=== PATIENT | male | born 1960 | race Caucasian/White ===

== ENCOUNTER 2023-04-23 09:41 | Outpatient (AMB) | payer BC, SELFPAY ==
--- NOTE | 2023-04-23 10:12 | HO.NEPHOV_ITS ---
HPI HPI Comments History of Present Illness Details I had the pleasure of seeing Harrison in consultation for hyperkalemia. His serum creatinine also had been running high normal for a while. He has history of prostate cancer and had undergone radical prostatectomy. He has been having upper respiratory issues including sinus problems for which he sees ears nose throat doctor locally as well as in [place]. Lately he has been having joint pains. He is known to be hypertensive and has been on lisinopril. He is not a diabetic. He denies any blood or protein in the urine. He does not have any pedal edema. He checks his blood pressure and has been at goal. He recently had taken meloxicam which has been discontinued. His serum potassium at baseline has been around 5. He has no history of metabolic acidosis. He denies taking any eoas-wmv-kbtiqyq medications. He had been receiving intermittent short courses of prednisone over the years from ENT physicians. He recently had been switched to lisinopril hydrochlorothiazide. He finds it difficult to drink plenty of fluids given he developed some incontinence issues after his radical prostatectomy. His recent serum creatinine has been 1.2 with a serum potassium 5.5. He denies nausea, vomiting or diarrhea. He does not have any shortness of breath, proximal nocturnal dyspnea, orthopnea. He had denied any photosensitivity, skin rashes. His sister has had history of hydronephrosis. He has not had a renal ultrasound yet. [facility] Medical History (Updated 04/23/23 @ 11:13 by Celso Diaz MD) Hyperlipidemia Low testosterone Asthma Essential hypertension Hyperkalemia Surgical History (Updated 04/23/23 @ 10:15 by Krista Acuña MA) History of prostatectomy H/O sinus surgery Family History (Updated 04/23/23 @ 10:16 by Krista Acñua MA) Mother Hypertension Father Hypertension Brother Hypertension Sister Kidney disease Social History (Updated 04/23/23 @ 10:17 by Krista Acuña MA) Alcohol intake: never Patient Tobacco Use Status: Never used Tobacco Vital Signs 04/23/23 10:13 Height 5 ft 9 in Weight 212 lb 8 oz BMI 31.4 BP 124/80 Blood Pressure Location Lt brachial Position Sitting Pulse 72 Pulse Source Pulse Oximeter Physical Exam Vital Signs: Last Vital Signs Pulse 72 04/23/23 10:13 BP 124/80 11/13/23 10:13 BMI result Body Mass Index 31.4 Const General: comfortable and no acute distress Orientation/consciousness: patient oriented x3 HEENT Head: Yes normocephalic Mouth: Normal oral and palatal mucosa present Eyes EOM: EOMs intact bilaterally Neck Neck: Yes supple Resp Auscultation: clear to auscultation bilaterally Cardio Jugular venous distension: no JVD Rate: regular rate Heart sounds: Murmur heart sound present GI Palpation (GI): Soft to palpation Auscultation: normal bowel sounds General: Yes no CVA tenderness Back/Spine/Pelvis Back: no CVA tenderness Skin General skin exam: no rashes or lesions noted Neuro General: patient oriented x3 and moves all extremities Extrem General: Yes no pedal edema Assessment & Plan Assessment & Plan (1) Essential hypertension: Code(s): I10 - Essential (primary) hypertension (2) Hyperkalemia: Code(s): E87.5 - Hyperkalemia Plan 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 He has not had a renal ultrasound yet. He had been on lisinopril for blood pressure. He was on meloxicam when his serum potassium went up to 5.5. At that time he was switched from lisinopril to lisinopril hydrochlorothiazide and his blood urea nitrogen went up marginally. His serum creatinine has been stable. He is not diabetic. He denies taking any nonsteroidal anti-inflammatory medications or dwza-nel-tfhvykm medications at this point in time. He has a lot of upper respiratory illness as well as significant sinus issues and nasal polyps. He receives intermittent short course of prednisone from his ENT physicians. He has been having joint pains lately with initially improved with the urge small dose of steroids but needed a higher dose of of prednisone recently. He needs to see a catalogue maker. I have asked him to remain well hydrated. Given he is not taking any nonsteroidal anti-inflammatory medications and trying to improve in his hydration, hopefully his serum creatinine will remain stable and the serum potassium will normalize. If his potassium is still running high normal or high I will initiate him on low-potassium diet and potassium lowering therapy. I will arrange a renal ultrasound after the next visit and blood work. He is also getting an ANCA given his recurrent sinus issues as well as high normal serum creatinine. He has lost quite a bit of weight being on medications. All these have been explained in detail. All questions were answered. Time spent procuring old data, patient encounter and documentation 61 minutes. Orders: Orders UA and rflx microscopic Today E87.5 - Hyperkalemia, I10 - Essential (primary) hypertension ANCA Vasculitides Today E87.5 - Hyperkalemia, I10 - Essential (primary) hypertension Blood Urea Nitrogen Today E87.5 - Hyperkalemia, I10 - Essential (primary) hypertension Creatinine Today E87.5 - Hyperkalemia, I10 - Essential (primary) hypertension Protein Creatinine Ratio, Ur Today E87.5 - Hyperkalemia, I10 - Essential (primary) hypertension Electrolytes Today E87.5 - Hyperkalemia, I10 - Essential (primary) hypertension Calcium Today E87.5 - Hyperkalemia, I10 - Essential (primary) hypertension Coding Level of Care Code New Pt Level 4 (74741) Diagnoses Essential hypertension I10 Hyperkalemia E87.5
[2023-04-23 10:13] VITALS: BP 124/80; PULSE 72; BMI 31.4
== END 2023-04-23 11:29 | disposition home or self-care (01) ==
PROVIDERS: PCP Internal Medicine; Visit Provider Internal Medicine Nephrology
DX: I10 Essential (primary) hypertension (principal); E87.5 Hyperkalemia
CPT/HCPCS: 99205

== ENCOUNTER → 2023-04-23 09:41 | Outpatient (BNVA) | payer BC, SELFPAY | PROVIDERS: PCP Internal Medicine; Visit Provider Internal Medicine Nephrology ==

== ENCOUNTER 2023-06-26 11:32 | Outpatient (AMB) | payer BC, SELFPAY ==
[2023-06-26 11:44] VITALS: BP 130/70; PULSE 66; O2SAT 100; BMI 30.9
--- NOTE | 2023-06-26 11:44 | HO.NEPHOV_ITS ---
HPI HPI Comments History of Present Illness Details I had the pleasure of seeing Harrison in follow up for hyperkalemia and hypertension. His serum creatinine also had been running high normal for a while. He has history of prostate cancer and had undergone radical p rostatectomy. He has been having upper respiratory issues including sinus problems for which he sees ears nose throat doctor locally as well as in [place]. Lately he has been having joint pains. He is known to be hypertensive and has been on lisinopril. He is not a diabetic. He denies any blood or protein in the urine. He does not have any pedal edema. He checks his blood pressure and has been at goal. He had taken meloxicam which has been discontinued a while ago. His serum potassium at baseline has been around 5 which is better now. He has no history of metabolic acidosis. He denies taking any imec-mqj-ncxrlef medications. He had been receiving intermittent short courses of prednisone over the years from ENT physicians. He finds it difficult to drink plenty of fluids given he developed some incontinence issues after his radical prostatectomy. His recent serum creatinine has been 1.2 with a serum potassium 4.9. He denies nausea, vomiting or diarrhea. He does not have any shortness of breath, proximal nocturnal dyspnea, orthopnea. He had denied any photosensitivity, skin rashes. His sister has had history of hydronephrosis. [facility] Medical History (Updated 04/23/23 @ 11:13 by Celso Diaz MD) Hyperlipidemia Low testosterone Asthma Essential hypertension Hyperkalemia Surgical History History of prostatectomy H/O sinus surgery Family History Mother Hypertension Father Hypertension Brother Hypertension Sister Kidney disease Social History Alcohol intake: never Patient Tobacco Use Status: Never used Tobacco Vital Signs 06/26/23 11:44 Height 5 ft 9 in Weight 209 lb 2 oz BMI 30.9 BP 130/70 Blood Pressure Location Lt brachial Position Sitting Pulse 66 Pulse Source Pulse Oximeter Pulse Oximetry (%) 100 Oxygen Delivery Method Room Air Physical Exam Vital Signs: Last Vital Signs Pulse 66 06/26/23 11:44 BP 130/70 01/16/24 11:44 Pulse Ox 100 06/26/23 11:44 Oxygen Delivery Method Room Air 06/26/23 11:44 BMI result Body Mass Index 30.9 Const General: comfortable and no acute distress Orientation/consciousness: patient oriented x3 HEENT Head: Yes normocephalic Mouth: Normal oral and palatal mucosa present Eyes EOM: EOMs intact bilaterally Neck Neck: Yes supple Resp Auscultation: clear to auscultation bilaterally Cardio Jugular venous distension: no JVD Rate: regular rate GI Palpation (GI): Soft to palpation Auscultation: normal bowel sounds General: Yes no CVA tenderness Back/Spine/Pelvis Back: no CVA tenderness Skin General skin exam: no rashes or lesions noted Neuro General: patient oriented x3 and moves all extremities Extrem General: Yes no pedal edema Assessment & Plan Assessment & Plan (1) Essential hypertension: Code(s): I10 - Essential (primary) hypertension Plan 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 He had been on lisinopril for blood pressure. He was on meloxicam when his serum potassium went up to 5.5 which has improved to 4.9 . His serum creatinine has been stable. He is not diabetic. He denies taking any nonsteroidal anti- inflammatory medications or jlzm-xei-evnofhz medications at this point in time. He has a lot of upper respiratory illness as well as significant sinus issues and nasal polyps. He receives intermittent short course of prednisone from his ENT physicians. He has been having joint pains lately with initially improved with the urge small dose of steroids but needed a higher dose of of prednisone recently. He has an appointment to see a animal care attendant. I have asked him to remain well hydrated. Given he is not taking any nonsteroidal anti-inflammatory medications and trying to improve in his hydration, hopefully his serum creatinine will remain stable and the serum potassium will remain stable. If his potassium is still running high normal or high I will initiate him on low- potassium diet and potassium lowering therapy. His ANCA was tested given his recurrent sinus issues as well as high normal serum creatinine, which was negative. I did not make any medication changes today. All these have been explained in detail. All questions were answered. Orders: Orders Electrolytes Today I10 - Essential (primary) hypertension Blood Urea Nitrogen Today I10 - Essential (primary) hypertension Creatinine Today I10 - Essential (primary) hypertension Coding Level of Care Code Est Pt Level 3 (65290) Diagnoses Essential hypertension I10 Results Reviewed Nephrology Results: No Data to Display
== END 2023-06-26 12:13 | disposition home or self-care (01) ==
PROVIDERS: PCP Internal Medicine; Visit Provider Internal Medicine Nephrology
DX: I10 Essential (primary) hypertension (principal)
CPT/HCPCS: 99213

== ENCOUNTER → 2023-06-26 11:32 | Outpatient (BNVA) | payer BC, SELFPAY | PROVIDERS: PCP Internal Medicine; Visit Provider Internal Medicine Nephrology ==